=== PATIENT | female | born 1990 ===

== ENCOUNTER → 2024-03-26 | Day surgery (SDC) | payer OTHER ==
[~2024-03-26] MED LIST: Albuterol 0.083% 2.5 MG/3 ML Neb Soln NEB PRN; Bupivacaine 0.25% 30 ML SDV ONE; Bupivacaine 0.5%/EPINEPHrine 1:200,000 30 ML SDV ONE; Dexamethasone 4 MG/ML 5 ML MDV ONE; Ferric Subsulfate Topical Soln 8 GM (8 ML) Bottle ONE; HYDROmorphone 2 MG/ML Syringe ONE; Iodine/Potassium Iodide 5% Solution 14 ML Bottle ONE; Ketamine HCL/NACL, ISO-OSM 50 MG/5 ML Syringe ONE; Ketorolac 30 MG/ML SDV IVPUSH ONE; Ketorolac 30 MG/ML SDV ONE; Lidocaine 2% 5 ML SDV ONE; Morphine 2 MG/ML SYRINGE IVPUSH PRN; Naloxone 0.4 MG/ML SDV IVPUSH PRN; Propofol 200 MG/20 ML SDV ONE; Rocuronium Bromide 50 MG/5 ML Syringe ONE; Sugammadex Sodium 200 MG/2 ML VIAL IV ONE; ceFAZolin 2 GM Vial ONE; droPERidol 5 MG/2 ML SDV IVPUSH PRN; fentaNYL 100 MCG/2 ML SDV ONE; fentaNYL 50 MCG/ML SDV IVPUSH PRN
[2024-03-26] MEDS: Lactated Ringers 1,000 ML IV SCH (09:45)
[2024-03-26] MEDS: HYDROmorphone 1 MG/ML Syringe IVPUSH PRN (13:04)
[2024-03-26] MEDS: Ondansetron 4 MG/2 ML SDV IVPUSH PRN (13:31)
[2024-03-26] MEDS: Metoclopramide 10 MG/2 ML SDV IVPUSH PRN (14:00)
[2024-03-26] MEDS: Scopalamine 1mg/3day Transdermal Patch TOP ONE (14:05)
[2024-03-26] MEDS: Scopalamine 1mg/3day Transdermal Patch ONE (14:45)
== END | disposition home or self-care (01) ==
LOC: MW.SDS 08:52
PROVIDERS: ATTEND Obstetrics & Gynecology
DX: D27.1 Benign neoplasm of left ovary (principal); N72 Inflammatory disease of cervix uteri; F32.A Depression, unspecified; E66.9 Obesity, unspecified; F17.210 Nicotine dependence, cigarettes, uncomplicated
CPT/HCPCS: 57455; 58661; 64488; A9270; J0131; J0665; J0690; J1100; J1170; J2405; J2704; J2765; J3010; J3490; J7120; 00840; J1885